=== PATIENT | male | born 1940 | race Caucasian/White ===

== ENCOUNTER 2025-05-06 13:56 | Outpatient (CLI) | payer BC | END 2025-05-06 13:57 | disposition home or self-care (01) | LOC: CSHWCC 13:56 | PROVIDERS: ATTEND Nurse Practitioner Family | DX: E11.622 Type 2 diabetes mellitus with other skin ulcer (principal); L97.312 Non-pressure chronic ulcer of right ankle with fat layer exposed; C61 Malignant neoplasm of prostate | CPT/HCPCS: 11042; 99214; G0463 ==

== ENCOUNTER 2025-05-20 13:59 | Outpatient (CLI) | payer BC | END 2025-05-20 14:00 | disposition home or self-care (01) | LOC: CSHWCC 13:59 | PROVIDERS: ATTEND Nurse Practitioner Family | DX: E11.622 Type 2 diabetes mellitus with other skin ulcer (principal); L97.312 Non-pressure chronic ulcer of right ankle with fat layer exposed; C61 Malignant neoplasm of prostate | CPT/HCPCS: 11042; 97607; 99213; G0463 ==

== ENCOUNTER 2025-06-03 12:44 | Outpatient (CLI) | payer BC | END 2025-06-03 12:45 | disposition home or self-care (01) | LOC: CSHWCC 12:44 | PROVIDERS: ATTEND Nurse Practitioner Family | DX: E11.622 Type 2 diabetes mellitus with other skin ulcer (principal); L97.312 Non-pressure chronic ulcer of right ankle with fat layer exposed; C61 Malignant neoplasm of prostate | CPT/HCPCS: 97597 ==

== ENCOUNTER 2025-06-10 14:25 | Outpatient (CLI) | payer BC | END 2025-06-10 14:26 | disposition home or self-care (01) | LOC: CSHWCC 14:25 | PROVIDERS: ATTEND Nurse Practitioner Family | DX: S81.011D Laceration without foreign body, right knee, subsequent encounter (principal); E11.622 Type 2 diabetes mellitus with other skin ulcer; L97.312 Non-pressure chronic ulcer of right ankle with fat layer exposed; C61 Malignant neoplasm of prostate | CPT/HCPCS: 97597; 99213; G0463 ==

== ENCOUNTER 2025-07-14 13:50 | Outpatient (CLI) | payer BC | END 2025-07-14 13:51 | disposition home or self-care (01) | LOC: CSHWCC 13:50 | PROVIDERS: ATTEND Nurse Practitioner Family | DX: Z09 Encounter for follow-up examination after completed treatment for conditions other than malignant neoplasm (principal); Z87.2 Personal history of diseases of the skin and subcutaneous tissue; C61 Malignant neoplasm of prostate | CPT/HCPCS: 99212; G0463 ==